=== PATIENT | female | born 1995 | race Caucasian/White ===

== ENCOUNTER 2020-10-31 03:44 | Inpatient (IN) | payer MEDICAID ==
[2020-10-31] MEDS ORDERED: Ondansetron 4 MG/2 ML SDV IVPUSH PRN (19:25)
[2020-10-31] MEDS ORDERED: Calcium Carbonate 500 MG Tab.Chew PO PRN (19:25)
[2020-10-31] MEDS ORDERED: Sodium Chloride 0.9% 10 ML Syringe FLUSH PRN (19:25)
[2020-10-31] MEDS ORDERED: Nalbuphine 10 MG/1 ML Vial IVPUSH PRN (19:25)
[2020-10-31] MEDS ORDERED: Acetaminophen 325 MG Tab PO PRN (19:25)
[2020-10-31] MEDS ORDERED: Misoprostol 25 MCG (1/4 of 100 MCG) Tab VAG ONE (19:27)
[2020-10-31] MEDS ORDERED: Oxytocin/Lactated Ringers 10 UNIT/1,000 ML BAG IV SCH (19:30)
--- NOTE | 2020-10-31 20:47 | PCM.LDHP ---
L&D History of Present Illness - General Date of Service: 10/31/20 Admit Problem/Dx: Patient Status Order with Admit Dx/Problem 10/31/20 19:25 Patient Status [ADT] Routine Admission Diagnosis/Problem Admission Diagnosis/Problem Source of Information: Patient History Limitations: Reports: No Limitations - History of Present Illness Introduction:: Patti Werner is a 25-year-old G1, P0 female at 39 weeks 3 days (MABEL 11/04/2020) by a 7-week ultrasound who presents for elective induction of labor. She denies any significant cramping or contractions. Denies any leaking of fluid or vaginal bleeding. Reports that she has been feeling good movement. Reports that she was seen over the weekend on 10/29/2020, for regular contractions without any cervical change. She was discharged home not in labor. Associated Symptoms: Denies: vaginal bleeding, vaginal discharge, vaginal fluid Present Illness Comments:: Patti Werner is a 25-year-old female at 39 weeks 3 days (MABEL 11/04/2020) by a 7-week ultrasound who presents for elective induction of labor. She has had routine care with myself, Dr. Mckinney, starting at 7 weeks gestational age. She has not had any significant problems during the . She declined the flu and Tdap vaccine during . She was noted to have infant that was measuring large for gestational age and had ultrasounds throughout the to monitor growth. Her most recent ultrasound was done on 10/16/2020 and the infant was weighing 3743 g (8 pounds 4 ounces) (95th percentile) at that time. She was measuring approximately 1.5 weeks ahead at that time. Patient has been on aspirin 81 mg daily for preeclampsia prophylaxis due to 3 moderate risk factors including nulliparity, obesity and family history with preeclampsia with her mother having preeclampsia during one of her pregnancies. This is complicated by: * Large for dates with measuring 2 to 3 cm ahead. She most recently had an ultrasound performed on 10/16/2020 that showed that the infant was measuring at the 95th percentile at 3743 g (8 pounds 4 ounces) at that time. * Obesity with patient having BMI of 40.8. She did have normal weight gain during the FINANCIAL COST ANALYST history G1: Current labs Blood type: A+ Antibody screen: Negative First trimester hematocrit/hemoglobin: 38.2%/12.9 on 02/28/2020 Platelets: 366 on 02/28/2020 Urine culture: Mixed nida suggestive of contamination Rubella status: Immune Hepatitis B surface antigen: Negative RPR: Negative HIV: Negative Gonorrhea: Negative Chlamydia: Negative Anatomy ultrasound: Normal anatomy, no abnormalities, fundal placenta, no previa, 95th percentile (3743 g) (8 pounds 4 ounces) on 10/16/2020 One hour glucose tolerance test: 102 Second trimester hematocrit/hemoglobin: 33.8%/11.1 on 08/03/2020 Platelets: 233 on 08/03/2020 GBS status: Negative - Related Data Allergies/Adverse Reactions: Allergies Allergy/AdvReac Type Severity Reaction Status Date / Time No Known Allergies Allergy Verified 10/31/20 19:24 Home Medications: Home Meds Aspirin 81 mg PO DAILY 10/03/20 [History] #103/Iron Fumarate/Fa [ ] 1 each PO DAILY 10/03/20 [History] Past Medical History - Past Health History Medical/Surgical History: Denies Medical/Surgical History - Past Surgical History HEENT Surgical History: Reports: Other (See Below) ([place] tooth extraction) Social & Family History - Tobacco Use Tobacco Use Status *Q: Never Tobacco User Tobacco Use Within Last Twelve Months: No - Tobacco Core Measures Tobacco Use/Smoking Within Last 30 Days: No Smokeless Tobacco Use in Last 30 Days: No - Alcohol Use Alcohol Use History: No - Recreational Drug Use Recreational Drug Use: No Drug Use in Last 12 Months: No - Living Situation & Occupation Living situation: Reports: Single, with Significant Other Occupation: Employed H&P Review of Systems - Review of Systems: Review Of Systems: See Below General: Denies: Fever, Chills, Malaise, Weakness, Fatigue HEENT: Denies: Headaches, Rhinitis, Post Nasal Drip, Sinus Congestion, Sore Throat, Visual Changes Pulmonary: Denies: Shortness of Breath, Wheezing, Pleuritic Chest Pain, Cough Cardiovascular: Denies: Chest Pain, Palpitations, Dyspnea on Exertion, Orthopnea Gastrointestinal: Denies: Abdominal Pain, Constipation, Diarrhea, Nausea, Vomiting Genitourinary: Denies: Dysuria, Frequency, Burning, Pain, Urgency Musculoskeletal: Reports: Back Pain (and hip pain of ) Skin: Denies: Rash, Lesions Psychiatric: Denies: Depression, Anxiety Neurological: Denies: Dizziness, Numbness L&D Exam - Exam Exam: See Below - Vital Signs Weight: 121.608 kg - OB Specific Contraction Duration (sec): 45-75 Contraction Frequency (min): 4-7 Contraction Intensity: Mild to Moderate Movement: Active Heart Tones: Present Heart Tones per Min: 140 (+15 x 15 accelerations, no decelerations) Heart Rate (FHR) Variability: Moderate (6-25 bmp) Presentation: Vertex Estimated Weight: 8.5 - 9 lbs by Jorge's - Exam General: Alert, Oriented HEENT: Conjunctiva Clear, EOMI Neck: Supple, Trachea Midline Lungs: Clear to Auscultation, Normal Respiratory Effort Cardiovascular: Regular Rate, Regular Rhythm GI/Abdominal Exam: Soft, Non-Tender, No Distention, Other (Gravid). No: Guarding, Rigid, Rebound Genitourinary: Normal external exam Extremities: Normal Inspection, No Pedal Edema Skin: Warm, Dry, Intact Psychiatric: Alert, Normal Affect, Normal Mood - Patient Data Lab Results Last 24 hrs: Laboratory Results - last 24 hr 10/31/20 Range/Units 19:40 WBC 8.74 (3.98-10.04) K/mm3 RBC 3.76 L (3.98-5.22) M/mm3 Hgb 10.0 L (11.2-15.7) gm/dl Hct 30.9 L (34.1-44.9) % MCV 82.2 (79.4-94.8) fl MCH 26.6 (25.6-32.2) pg MCHC 32.4 (32.2-35.5) g/dl RDW Std Deviation 39.3 (36.4-46.3) fL Plt Count 223 (182-369) K/mm3 MPV 11.8 (9.4-12.3) fl Neut % (Auto) 76.6 H (34.0-71.1) % Lymph % (Auto) 16.1 L (19.3-51.7) % [place] % (Auto) 6.5 (4.7-12.5) % Eos % (Auto) 0.6 L (0.7-5.8) Baso % (Auto) 0.1 (0.1-1.2) % Neut # (Auto) 6.69 H (1.56-6.13) K/mm3 Lymph # (Auto) 1.41 (1.18-3.74) K/mm3 [place] # (Auto) 0.57 H (0.24-0.36) K/mm3 Eos # (Auto) 0.05 (0.04-0.36) K/mm3 Baso # (Auto) 0.01 (0.01-0.08) K/mm3 Result Diagrams: 10/31/20 19:40 - Problem List (1) 39 weeks gestation of SNOMED Code(s): 86121561 ICD Code: Z3A.39 - 39 WEEKS GESTATION OF Status: Acute Current Visit: Yes (2) Obesity affecting SNOMED Code(s): 442345534471, 851371012428 ICD Code: O99.210 - OBESITY COMPLICATING , UNSPECIFIED TRIMESTER Status: Acute Current Visit: Yes Problem List Initiated/Reviewed/Updated: Yes Orders Last 24hrs: Active Orders 24 hr Category Date Time Status Patient Status [ADT] Routine ADT 10/31/20 19:25 Active Activity as Tolerated [RC] PFP Care 10/31/20 19:25 Active Communication Order [RC] ASDIRECTED Care 10/31/20 19:25 Active Heart Tones [RC] ASDIRECTED Care 10/31/20 19:25 Active Non Stress Test [RC] PER UNIT ROUTINE Care 10/31/20 19:25 Active Notify Provider [RC] PFP Care 10/31/20 19:25 Active Notify Provider [RC] PRN Care 10/31/20 19:25 Active Peripheral IV Care [RC] . DIRECTED Care 10/31/20 19:25 Active Vital Signs [RC] PER UNIT ROUTINE Care 10/31/20 19:25 Active Regular Diet [DIET] Diet 10/31/20 Breakfast Active CORONAVIRUS COVID-19 NATAN [MOLEC] Stat Lab 10/31/20 19:40 Received RAPID PLASMA REAGIN,RPR [CHEM] Routine Lab 10/31/20 19:40 Received TYPE AND SCREEN [BBK] Stat Lab 10/31/20 19:40 Received Acetaminophen [TylenoL] Med 10/31/20 19:25 Active 650 mg PO Q4H PRN Calcium Carbonate [Tums] Med 10/31/20 19:25 Active 1,000 mg PO Q2H PRN Lactated Ringers [Ringers, Lactated] 1,000 ml Med 10/31/20 19:30 Active IV ASDIRECTED Nalbuphine [Nubain] Med 10/31/20 19:25 Active 10 mg IVPUSH Q2H PRN Ondansetron [Zofran] Med 10/31/20 19:25 Active 4 mg IVPUSH Q4H PRN Oxytocin/Lactated Ringers [Pitocin in LR 10 Units/1,000 Med 10/31/20 19:30 Active ML] 10 unit in 1,000 ml IV .CONTINUOUS Oxytocin/Lactated Ringers [Pitocin in LR 10 Units/1,000 Med 10/31/20 19:30 Active ML] 10 unit in 1,000 ml IV TITRATE Sodium Chloride 0.9% [Saline Flush] Med 10/31/20 19:25 Active 10 ml FLUSH ASDIRECTED PRN Electronic Heart Tones Ext w TOCO [WOMSER] Ot 10/31/20 19:25 Ordered Routine Electronic Heart Tones Internal [WOMSER] Per Unit Ot 10/31/20 19:25 Ordered Routine Peripheral IV Insertion Adult [OM.PC] Routine Oth 10/31/20 19:25 Ordered Resuscitation Status Routine Resus Stat 10/31/20 19:25 Ordered Medication Orders Acetaminophen (Tylenol) 650 mg PO Q4H PRN PRN Reason: Pain (Mild 1-3) and fever Calcium Carbonate/Glycine (Tums) 1,000 mg PO Q2H PRN PRN Reason: Indigestion Oxytocin/Lactated Ringer's (Pitocin In Lr 10 Units/1,000 Ml) 10 unit in 1,000 mls @ 12 mls/hr IV TITRATE NNEKA; Protocol Oxytocin/Lactated Ringer's (Pitocin In Lr 10 Units/1,000 Ml) 10 unit in 1,000 mls @ 500 mls/hr IV .CONTINUOUS NNEKA Lactated Ringer's (Ringers, Lactated) 1,000 mls @ 100 mls/hr IV ASDIRECTED NNEKA Nalbuphine HCl (Nubain) 10 mg IVPUSH Q2H PRN PRN Reason: Pain Ondansetron HCl (Zofran) 4 mg IVPUSH Q4H PRN PRN Reason: Nausea/Vomiting Sodium Chloride (Saline Flush) 10 ml FLUSH ASDIRECTED PRN PRN Reason: Keep Vein Open Assessment/Plan Comment:: Patti Werner is a 25-year-old G1, P0 at 39 weeks 3 days (MABEL 11/04/2020) who presents for elective induction of labor Patient had placement of an 18 [place] transcervical [place] bulb with a speculum and ring forceps with the [place] bulb inflated with 60 mL of sterile saline. Mother and infant tolerated procedure without difficulty. Refer to observation for elective induction of labor Start induction of labor with Cytotec 25 mcg vaginally now and every 4 hours Intermittent monitoring while on Cytotec with monitoring for 30 minutes after placement of Cytotec and may ambulate as tolerated with category [address] IV and have Lactated Ringer's at 125 ml/hr if not tolerating regular diet May have regular diet while on Cytotec induction Activity as tolerated May have epidural as desired Plans to breast-feed after delivery Anticipate vaginal delivery unless otherwise indicated Michael Mckinney MD 9:11 PM 10/31/2020
[2020-11-01] MEDS: Misoprostol 25 MCG (1/4 of 100 MCG) Tab VAG SCH ×2 (00:15→03:38)
[2020-11-01] MEDS: Lactated Ringers 1,000 ML IV SCH ×6 (00:37→18:12)
[2020-11-01] MEDS ORDERED: diphenhydrAMINE 50 MG/ML SDV IVPUSH PRN (01:10)
[2020-11-01] MEDS ORDERED: ePHEDrine 50 MG/ML SDV IVPUSH PRN (01:10)
[2020-11-01] MEDS: fentaNYL 100 MCG/2 ML SDV EPIDUR PRN ×3 (01:18→20:58)
[2020-11-01] MEDS: Bupivacaine/fentaNYL/NS 100 ML Bag EPIDUR PRN ×4 (01:19→21:02)
--- NOTE | 2020-11-01 01:43 | PCM.PREANE ---
Preanesthetic Assessment - Procedure Proposed Procedure: julio - Anesthesia/Transfusion/Family Hx Anesthesia History: Prior Anesthesia Without Reaction Family History of Anesthesia Reaction: No Transfusion History: No Prior Transfusion(s) - Review of Systems General: No Symptoms Pulmonary: No Symptoms Cardiovascular: No Symptoms Gastrointestinal: No Symptoms Neurological: No Symptoms Other: Reports: None - Physical Assessment Vital Signs: Last Vital Signs Temp 96.9 F 10/31/20 19:13 Pulse 82 10/31/20 19:13 Resp 16 10/31/20 19:13 BP 130/86 10/31/20 19:13 Pulse Ox 97 10/31/20 19:13 Height: 5 ft 8 in Weight: 121.608 kg ASA Class: 2 Mental Status: Alert & Oriented x3 Airway Class: Mallampati = 1 Dentition: Reports: Normal Dentition Thyro-Mental Finger Breadths: 3 Mouth Opening Finger Breadths: 3 ROM/Head Extension: Full Lungs: Clear to Auscultation, Normal Respiratory Effort Cardiovascular: Regular Rate, Regular Rhythm - Lab Values: Laboratory Last Values WBC 8.74 K/mm3 (3.98-10.04) 10/31/20 19:40 RBC 3.76 M/mm3 (3.98-5.22) L 10/31/20 19:40 Hgb 10.0 gm/dl (11.2-15.7) L 10/31/20 19:40 Hct 30.9 % (34.1-44.9) L 10/31/20 19:40 MCV 82.2 fl (79.4-94.8) 10/31/20 19:40 MCH 26.6 pg (25.6-32.2) 10/31/20 19:40 MCHC 32.4 g/dl (32.2-35.5) 10/31/20 19:40 RDW Std Deviation 39.3 fL (36.4-46.3) 10/31/20 19:40 Plt Count 223 K/mm3 (182-369) 10/31/20 19:40 MPV 11.8 fl (9.4-12.3) 10/31/20 19:40 Neut % (Auto) 76.6 % (34.0-71.1) H 10/31/20 19:40 Lymph % (Auto) 16.1 % (19.3-51.7) L 10/31/20 19:40 [place] % (Auto) 6.5 % (4.7-12.5) 10/31/20 19:40 Eos % (Auto) 0.6 (0.7-5.8) L 10/31/20 19:40 Baso % (Auto) 0.1 % (0.1-1.2) 10/31/20 19:40 Neut # (Auto) 6.69 K/mm3 (1.56-6.13) H 10/31/20 19:40 Lymph # (Auto) 1.41 K/mm3 (1.18-3.74) 10/31/20 19:40 [place] # (Auto) 0.57 K/mm3 (0.24-0.36) H 10/31/20 19:40 Eos # (Auto) 0.05 K/mm3 (0.04-0.36) 10/31/20 19:40 Baso # (Auto) 0.01 K/mm3 (0.01-0.08) 10/31/20 19:40 RPR Non-reactive (NONREACTIVE) 10/31/20 19:40 SARS-CoV-2 RNA (NATAN) Negative (NEGATIVE) 10/31/20 19:40 Blood Type A POSITIVE 10/31/20 19:40 Gel Antibody Screen Negative 10/31/20 19:40 - Allergies Allergies/Adverse Reactions: Allergies Allergy/AdvReac Type Severity Reaction Status Date / Time No Known Allergies Allergy Verified 10/31/20 19:24 - Blood Blood Available: No - Acknowledgements Anesthesia Type Planned: Epidural Pt an Appropriate Candidate for the Planned Anesthesia: Yes Alternatives and Risks of Anesthesia Discussed w Pt/Guardian: Yes Pt/Guardian Understands and Agrees with Anesthesia Plan: Yes PreAnesthesia Questionnaire - Past Health History Medical/Surgical History: Denies Medical/Surgical History Cardiovascular History: Reports: None Respiratory History: Reports: None Gastrointestinal History: Reports: GERD 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 Para: 0 Endocrine/Metabolic History: Reports: Obesity/BMI 30+ - Past Surgical History HEENT Surgical History: Reports: Other (See Below) ([place] tooth extraction) - SUBSTANCE USE Tobacco Use Status *Q: Never Tobacco User Tobacco Use Within Last Twelve Months: No Second Hand Smoke Exposure: Yes Days Per Week of Alcohol Use: 2 (prior to ) Number of Drinks Per Day: 3 Total Drinks Per Week: 6 Recreational Drug Use History: No - HOME MEDS Home Medications: Home Meds Aspirin 81 mg PO DAILY 10/03/20 [History] #103/Iron Fumarate/Fa [ ] 1 each PO DAILY 10/03/20 [History] - CURRENT (IN HOUSE) MEDS Current Meds: Current Medications Acetaminophen (Tylenol) 650 mg PO Q4H PRN PRN Reason: Pain (Mild 1-3) and fever Calcium Carbonate/Glycine (Tums) 1,000 mg PO Q2H PRN PRN Reason: Indigestion Diphenhydramine HCl (Benadryl) 25 mg IVPUSH Q6H PRN PRN Reason: pruritis Ephedrine Sulfate (Ephedrine Sulfate) 5 mg IVPUSH ASDIRECTED PRN PRN Reason: Hypotension Fentanyl (Sublimaze) 100 mcg EPIDUR Q3H PRN PRN Reason: Pain Last Admin: 11/01/20 01:18 Dose: 100 mcg Documented by: Fentanyl/Bupivacaine HCl (Fentanyl/Bupivacaine/Ns 2 Mcg-0.125% 100 Ml) 100 ml EPIDUR ASDIRECTED PRN PRN Reason: Pain Last Admin: 11/01/20 01:19 Dose: 100 ml Documented by: Oxytocin/Lactated Ringer's (Pitocin In Lr 10 Units/1,000 Ml) 10 unit in 1,000 mls @ 12 mls/hr IV TITRATE NNEKA; Protocol Oxytocin/Lactated Ringer's (Pitocin In Lr 10 Units/1,000 Ml) 10 unit in 1,000 mls @ 500 mls/hr IV .CONTINUOUS NNEKA Lactated Ringer's (Ringers, Lactated) 1,000 mls @ 100 mls/hr IV ASDIRECTED NNEKA Last Admin: 11/01/20 01:13 Dose: 100 mls/hr Documented by: Misoprostol (Cytotec) 25 mcg VAG Q4H NNEKA Stop: 11/01/20 04:02 Last Admin: 11/01/20 00:15 Dose: Not Given Documented by: Nalbuphine HCl (Nubain) 10 mg IVPUSH Q2H PRN PRN Reason: Pain Ondansetron HCl (Zofran) 4 mg IVPUSH Q4H PRN PRN Reason: Nausea/Vomiting Sodium Chloride (Saline Flush) 10 ml FLUSH ASDIRECTED PRN PRN Reason: Keep Vein Open Discontinued Medications Misoprostol (Cytotec) 25 mcg VAG ONETIME ONE Stop: 10/31/20 19:28 Last Admin: 10/31/20 20:04 Dose: 25 mcg Documented by:
[2020-11-01] MEDS: Oxytocin/Lactated Ringers 10 UNIT/1,000 ML BAG IV SCH ×2 (02:01→19:51)
--- NOTE | 2020-11-01 09:13 | PCM.PNLD ---
Labor Progress Note - VS & Meds Vital Signs: Last Vital Signs Temp 36.1 C 10/31/20 19:13 Pulse 82 10/31/20 19:13 Resp 16 10/31/20 19:13 BP 130/86 10/31/20 19:13 Pulse Ox 97 10/31/20 19:13 Active Medications: Current Medications Acetaminophen (Tylenol) 650 mg PO Q4H PRN PRN Reason: Pain (Mild 1-3) and fever Calcium Carbonate/Glycine (Tums) 1,000 mg PO Q2H PRN PRN Reason: Indigestion Diphenhydramine HCl (Benadryl) 25 mg IVPUSH Q6H PRN PRN Reason: pruritis Ephedrine Sulfate (Ephedrine Sulfate) 5 mg IVPUSH ASDIRECTED PRN PRN Reason: Hypotension Fentanyl (Sublimaze) 100 mcg EPIDUR Q3H PRN PRN Reason: Pain Last Admin: 11/01/20 01:18 Dose: 100 mcg Documented by: Fentanyl/Bupivacaine HCl (Fentanyl/Bupivacaine/Ns 2 Mcg-0.125% 100 Ml) 100 ml EPIDUR ASDIRECTED PRN PRN Reason: Pain Last Admin: 11/01/20 08:32 Dose: 100 ml Documented by: Oxytocin/Lactated Ringer's (Pitocin In Lr 10 Units/1,000 Ml) 10 unit in 1,000 mls @ 12 mls/hr IV TITRATE NNEKA; Protocol Last Titration: 11/01/20 08:34 Dose: 7 munits/min, 42 mls/hr Documented by: Oxytocin/Lactated Ringer's (Pitocin In Lr 10 Units/1,000 Ml) 10 unit in 1,000 mls @ 500 mls/hr IV .CONTINUOUS NNEKA Lactated Ringer's (Ringers, Lactated) 1,000 mls @ 100 mls/hr IV ASDIRECTED NNEKA Last Admin: 11/01/20 08:35 Dose: 100 mls/hr Documented by: Nalbuphine HCl (Nubain) 10 mg IVPUSH Q2H PRN PRN Reason: Pain Ondansetron HCl (Zofran) 4 mg IVPUSH Q4H PRN PRN Reason: Nausea/Vomiting Sodium Chloride (Saline Flush) 10 ml FLUSH ASDIRECTED PRN PRN Reason: Keep Vein Open Discontinued Medications Misoprostol (Cytotec) 25 mcg VAG ONETIME ONE Stop: 10/31/20 19:28 Last Admin: 10/31/20 20:04 Dose: 25 mcg Documented by: Misoprostol (Cytotec) 25 mcg VAG Q4H NNEKA Stop: 11/01/20 04:02 Last Admin: 11/01/20 03:38 Dose: Not Given Documented by: - Uterine Contractions Uterine Monitoring Mode: External [place] Contraction Frequency (min): 2-3 Contraction Duration (sec): 60-75 Contraction Intensity: Moderate to Strong Uterine Resting Tone: Soft - Monitoring Heart Rate (FHR) Baseline: 140 Heart Rate (FHR) Per Doppler: 140 Heart Rate (FHR) Variability: Moderate (6-25 bmp) Accelerations: Present, 15x15 Decelerations: Late, Intermittent (<50% x 20 min) Strip Review: Category II - Vaginal Exam Dilation (cm): 5 Effacement (Percent): 60 Station: -3 Cervical Position: Anterior Sterile Vaginal Exam Performed By: Michael Mckinney Vaginal Exam Comment: Attempted artificial rupture membranes with [place] but unable to reach the amniotic sac due to the location of the cervix behind the pubic symphysis. Attempt to stop did after approximately 1 to 2 minutes of attempted rupture of membranes. - Labor Progress (Free Text) Labor Progress: Patti Werner is a 25-year-old G1, P0 at 39 weeks 4 days (MABEL 11/04/2020) undergoing elective induction of labor Her [place] bulb came out spontaneously at around midnight and she was started on Pitocin at around 2 AM * Patient continuing to make progress at this time * Epidural in place with good anesthesia * Patient with several mild range blood pressures overnight suspect most likely due to pain as they occurred prior to her epidural. She has had several additional this morning with epidural in place. We will continue to monitor closely. * Routine vitals * Attempted rupture membranes but unsuccessful due to the and cervix position. * We will plan to reattempt artificial rupture membranes later this morning * Continue Pitocin for induction of labor * Anticipate vaginal delivery unless otherwise indicated Michael Mckinney MD 9:12 AM 11/01/2020
--- NOTE | 2020-11-01 17:09 | PCM.PNLD ---
Labor Progress Note - VS & Meds Vital Signs: Last Vital Signs Temp 36.1 C 10/31/20 19:13 Pulse 82 10/31/20 19:13 Resp 16 10/31/20 19:13 BP 130/86 10/31/20 19:13 Pulse Ox 97 10/31/20 19:13 Active Medications: Current Medications Acetaminophen (Tylenol) 650 mg PO Q4H PRN PRN Reason: Pain (Mild 1-3) and fever Calcium Carbonate/Glycine (Tums) 1,000 mg PO Q2H PRN PRN Reason: Indigestion Diphenhydramine HCl (Benadryl) 25 mg IVPUSH Q6H PRN PRN Reason: pruritis Ephedrine Sulfate (Ephedrine Sulfate) 5 mg IVPUSH ASDIRECTED PRN PRN Reason: Hypotension Fentanyl (Sublimaze) 100 mcg EPIDUR Q3H PRN PRN Reason: Pain Last Admin: 11/01/20 15:55 Dose: 100 mcg Documented by: Fentanyl/Bupivacaine HCl (Fentanyl/Bupivacaine/Ns 2 Mcg-0.125% 100 Ml) 100 ml EPIDUR ASDIRECTED PRN PRN Reason: Pain Last Admin: 11/01/20 15:03 Dose: 100 ml Documented by: Oxytocin/Lactated Ringer's (Pitocin In Lr 10 Units/1,000 Ml) 10 unit in 1,000 mls @ 12 mls/hr IV TITRATE NNEKA; Protocol Last Titration: 11/01/20 16:35 Dose: 14 munits/min, 84 mls/hr Documented by: Oxytocin/Lactated Ringer's (Pitocin In Lr 10 Units/1,000 Ml) 10 unit in 1,000 mls @ 500 mls/hr IV .CONTINUOUS NNEKA Lactated Ringer's (Ringers, Lactated) 1,000 mls @ 100 mls/hr IV ASDIRECTED NNEKA Last Admin: 11/01/20 08:35 Dose: 100 mls/hr Documented by: Nalbuphine HCl (Nubain) 10 mg IVPUSH Q2H PRN PRN Reason: Pain Ondansetron HCl (Zofran) 4 mg IVPUSH Q4H PRN PRN Reason: Nausea/Vomiting Sodium Chloride (Saline Flush) 10 ml FLUSH ASDIRECTED PRN PRN Reason: Keep Vein Open Discontinued Medications Misoprostol (Cytotec) 25 mcg VAG ONETIME ONE Stop: 10/31/20 19:28 Last Admin: 10/31/20 20:04 Dose: 25 mcg Documented by: Misoprostol (Cytotec) 25 mcg VAG Q4H NNEKA Stop: 11/01/20 04:02 Last Admin: 11/01/20 03:38 Dose: Not Given Documented by: - Uterine Contractions Uterine Monitoring Mode: External [place] Contraction Frequency (min): 2-3 Contraction Duration (sec): 60-75 Contraction Intensity: Strong Uterine Resting Tone: Soft - Monitoring Heart Rate (FHR) Baseline: 150 Heart Rate (FHR) Per Doppler: 150 Heart Rate (FHR) Variability: Moderate (6-25 bmp) Accelerations: Present, 15x15 Decelerations: Late, Intermittent (<50% x 20 min) Strip Review: Category I - Vaginal Exam Dilation (cm): 7-8 Effacement (Percent): 100 Station: -2 Cervical Position: Anterior Sterile Vaginal Exam Performed By: Michael Mckinney - Labor Progress (Free Text) Labor Progress: Patti Werner is a 25-year-old G1, P0 at 39 weeks 4 days (MABEL 11/04/2020) undergoing elective induction of labor * Patient with cervical change to 7 to 8 cm with descent of the head down to -2 station. Patient had made slow progress throughout the day with almost no descent prior to this exam * Epidural in place and we required redose of medication and now has good anesthesia * Patient with ongoing mild range blood pressures out the day. Lab work was checked and there was no evidence of preeclampsia. Urine protein/creatinine ratio was normal at 0.114 which is normal. Patient diagnosed with gestational hypertension at this time. No additional treatment or monitoring needed at this time. * Routine vitals and notify of severe range blood pressures if present * Patient with spontaneous rupture membranes with moderate stained meconium fluid at around 12:30 PM * Continue Pitocin for induction of labor * Anticipate vaginal delivery unless otherwise indicated Michael Mckinney MD 5:13 PM 11/01/2020
[2020-11-02] MEDS ORDERED: Lidocaine 1.5% with EPINEPHrine 1:200,000 5 ML Amp ONE
[2020-11-02] MEDS ORDERED: Bupivacaine 0.25% 10 ML SDV ONE
[2020-11-02] MEDS ORDERED: Ampicillin 2 GM AdvVial IV ONE (02:12)
[2020-11-02] MEDS ORDERED: Gentamicin 40 MG/ML 2 ML Vial IV SCH (02:15)
[2020-11-02] MEDS ORDERED: Ampicillin 2 GM in Sodium Chloride 0.9% 100 ML IV SCH (02:15)
[2020-11-02] MEDS ORDERED: Citric Acid/Sodium Citrate Solution 30 ML Cup ONE (02:48)
[2020-11-02] MEDS ORDERED: Metoclopramide 10 MG/2 ML SDV ONE (02:48)
[2020-11-02] MEDS ORDERED: Metoclopramide 10 MG/2 ML SDV IVPUSH ONE (02:53)
[2020-11-02] MEDS ORDERED: Clindamycin Phosphate in D5W 900 MG in Premix Bag 1 BAG IV ONE ×2 (02:53)
[2020-11-02] MEDS ORDERED: Sodium Chloride 0.9% 10 ML Syringe FLUSH PRN (02:53)
[2020-11-02] MEDS ORDERED: Citric Acid/Sodium Citrate Solution 30 ML Cup PO ONE (02:53)
[2020-11-02] MEDS ORDERED: Lactated Ringers 1,000 ML IV SCH (03:00)
[2020-11-02] MEDS ORDERED: Oxytocin/Lactated Ringers 10 UNIT/1,000 ML BAG IV SCH ×2 (03:00→06:48)
--- NOTE | 2020-11-02 03:04 | PCM.PNLD ---
Labor Progress Note - VS & Meds Vital Signs: Last Vital Signs Temp 36.1 C 10/31/20 19:13 Pulse 82 10/31/20 19:13 Resp 16 10/31/20 19:13 BP 130/86 10/31/20 19:13 Pulse Ox 97 10/31/20 19:13 Active Medications: Current Medications Acetaminophen (Tylenol) 650 mg PO Q4H PRN PRN Reason: Pain (Mild 1-3) and fever Last Admin: 11/02/20 01:04 Dose: 650 mg Documented by: Calcium Carbonate/Glycine (Tums) 1,000 mg PO Q2H PRN PRN Reason: Indigestion Diphenhydramine HCl (Benadryl) 25 mg IVPUSH Q6H PRN PRN Reason: pruritis Ephedrine Sulfate (Ephedrine Sulfate) 5 mg IVPUSH ASDIRECTED PRN PRN Reason: Hypotension Fentanyl (Sublimaze) 100 mcg EPIDUR Q3H PRN PRN Reason: Pain Last Admin: 11/01/20 20:58 Dose: 100 mcg Documented by: Fentanyl/Bupivacaine HCl (Fentanyl/Bupivacaine/Ns 2 Mcg-0.125% 100 Ml) 100 ml EPIDUR ASDIRECTED PRN PRN Reason: Pain Last Admin: 11/01/20 21:02 Dose: 100 ml Documented by: Gentamicin Sulfate (Gentamicin) 0 mg IV .Pharmacy to Dose [facility] Oxytocin/Lactated Ringer's (Pitocin In Lr 10 Units/1,000 Ml) 10 unit in 1,000 mls @ 12 mls/hr IV TITRATE NNEKA; Protocol Last Titration: 11/01/20 23:26 Dose: 16 munits/min, 96 mls/hr Documented by: Oxytocin/Lactated Ringer's (Pitocin In Lr 10 Units/1,000 Ml) 10 unit in 1,000 mls @ 500 mls/hr IV .CONTINUOUS NNEKA Lactated Ringer's (Ringers, Lactated) 1,000 mls @ 100 mls/hr IV ASDIRECTED NNEKA Last Admin: 11/01/20 18:12 Dose: 100 mls/hr Documented by: Ampicillin Sodium 2 gm/ Sodium (Chloride) 100 mls @ 200 mls/hr IV NOW NNEKA Gentamicin Sulfate 200 mg/ (Sodium Chloride) 105 mls @ 105 mls/hr IV Q8H NNEKA Last Admin: 11/02/20 02:30 Dose: 105 mls/hr Documented by: Nalbuphine HCl (Nubain) 10 mg IVPUSH Q2H PRN PRN Reason: Pain Ondansetron HCl (Zofran) 4 mg IVPUSH Q4H PRN PRN Reason: Nausea/Vomiting Last Admin: 11/01/20 19:31 Dose: 4 mg Documented by: Sodium Chloride (Saline Flush) 10 ml FLUSH ASDIRECTED PRN PRN Reason: Keep Vein Open Discontinued Medications Ampicillin Sodium (Ampicillin) Confirm Administered Dose 2 gm IV .STK-MED ONE Stop: 11/02/20 02:13 Last Admin: 11/02/20 02:17 Dose: 2 gm Documented by: Citric Acid/Sodium Citrate (Bicitra Solution) Confirm Administered Dose 30 ml .ROUTE .STK-MED ONE Stop: 11/02/20 02:49 Metoclopramide HCl (Reglan) Confirm Administered Dose 10 mg .ROUTE .STK-MED ONE Stop: 11/02/20 02:49 Misoprostol (Cytotec) 25 mcg VAG ONETIME ONE Stop: 10/31/20 19:28 Last Admin: 10/31/20 20:04 Dose: 25 mcg Documented by: Misoprostol (Cytotec) 25 mcg VAG Q4H NNEKA Stop: 11/01/20 04:02 Last Admin: 11/01/20 03:38 Dose: Not Given Documented by: - Uterine Contractions Uterine Monitoring Mode: External Tenino Contraction Frequency (min): 1-3 Contraction Duration (sec): 60-75 Contraction Intensity: Strong Uterine Resting Tone: Soft - Monitoring Heart Rate (FHR) Baseline: 165 Heart Rate (FHR) Per Doppler: 165 Heart Rate (FHR) Variability: Moderate (6-25 bmp) Accelerations: Present, 15x15 Decelerations: None Strip Review: Category II - Vaginal Exam Dilation (cm): 10 Effacement (Percent): 100 Station: 0 Cervical Position: Anterior Sterile Vaginal Exam Performed By: Michael Mckinney - Labor Progress (Free Text) Labor Progress: Patti Werner is a 25-year-old G1, P0 at 39 weeks 5 days who is undergoing an elective induction of labor Patient got to complete and started pushing at around 1:20 AM. During pushing she made some progress but had minimal descent of the head. After pushing for approximately 1.5 hours patient reported that she was becoming exhausted and was counseled on her options including continued pushing, vacuum extractor delivery or primary section. Patient considered her options and desired to proceed with primary section as she felt that she would not be able to push appropriately to deliver with a vacuum extractor delivery. * Admit to inpatient after section * Continue Lactated Ringer's at 125 ml/hr * SCDs for DVT prophylaxis * Nothing by mouth * Activity as tolerated * Plan for epidural for anesthesia * Plans to breast-feed after delivery * Plan for clindamycin 900 mg IV for antibiotic prophylaxis prior to surgery, patient has already received ampicillin 2 g IV and gentamicin 5 mg/kg due to chorioamnionitis that was diagnosed during pushing * Stop Pitocin at this time * Consents were signed with the patient prior to going for procedure Michael Mckinney M.D. 3:03 AM 11/02/2020
[2020-11-02] MEDS ORDERED: Bupivacaine 0.5% 30 ML SDV ONE (03:05)
[2020-11-02] MEDS ORDERED: Ketorolac 30 MG/ML SDV ONE (03:08)
[2020-11-02] MEDS ORDERED: fentaNYL 100 MCG/2 ML SDV ONE (03:08)
[2020-11-02] MEDS ORDERED: Morphine PF 10 MG/10 ML SDV ONE (03:08)
[2020-11-02] MEDS ORDERED: Lactated Ringers 2,000 ML ONE (03:08)
[2020-11-02] MEDS ORDERED: ceFAZolin 1 GM Vial ONE (03:08)
[2020-11-02] MEDS ORDERED: Ondansetron 4 MG/2 ML SDV ONE ×2 (03:08→03:52)
[2020-11-02] MEDS ORDERED: Oxytocin 10 Units/1 ML SDV ONE (03:08)
[2020-11-02] MEDS ORDERED: Lidocaine 2% with EPINEPHrine 1:200,000 20 ML SDV ONE (03:08)
[2020-11-02] MEDS ORDERED: fentaNYL 100 MCG/2 ML SDV IVPUSH PRN (03:16)
[2020-11-02] MEDS ORDERED: diphenhydrAMINE 50 MG/ML SDV IVPUSH PRN ×2 (03:16→06:48)
[2020-11-02] MEDS ORDERED: Ondansetron 4 MG/2 ML SDV IVPUSH PRN (03:16)
[2020-11-02] MEDS ORDERED: ePHEDrine 50 MG/ML SDV IVPUSH PRN ×2 (03:16→06:48)
[2020-11-02] MEDS ORDERED: HYDROmorphone 0.5 MG/0.5 ML Syringe IVPUSH PRN (03:17)
[2020-11-02] MEDS ORDERED: Meperidine 50 MG/ML Vial ONE (03:56)
--- NOTE | 2020-11-02 04:45 | PCM.POSTAN ---
POST ANESTHESIA ASSESSMENT - MENTAL STATUS Mental Status: Alert - VITAL SIGNS Vital Signs: Last Vital Signs Temp 98.3 10/31/20437 Pulse 111 10/31/20437 Resp 21 10/31/20437 BP 92/48 10/31/20437 Pulse Ox 96% 10/31/20437 - RESPIRATORY Respiratory Status: Respiratory Rate WNL, Airway Patent, O2 Saturation Stable - CARDIOVASCULAR CV Status: Pulse Rate WNL, Blood Pressure Stable - GASTROINTESTINAL GI Status: No Symptoms - POST OP HYDRATION Hydration Status: Adequate & Stable
--- NOTE | 2020-11-02 05:10 | PCM.OPNOTE ---
- General Post-Op/Procedure Note Date of Surgery/Procedure: 11/02/20 Operative Procedure(s): Primary low transverse section with double layer closure Findings: Live male infant delivered in vertex presentation on 11/02/2020 at 03:44. A Kiwi mushroom vacuum extractor was used to bring the head closer to the fascial incision and the infant was unable to be delivered without use of the vacuum extractor. There were 2 pop offs of the vacuum extractor. weight was 3840 g (8 pounds 7.5 ounces). Apgars were 7 and 8. Grossly normal- appearing uterus, bilateral fallopian tubes and ovaries. Pre Op Diagnosis: 39 weeks gestational age, chorioamnionitis, gestational hypertension, arrest of descent and maternal exhaustion Post-Op Diagnosis: Same Anesthesia Technique: Epidural Primary Surgeon: Michael Mckinney Anesthesia Provider: Annetta Rizvi Cork Compounder: Balbina Moser Reason Cork Compounder Was Necessary: Patient safety and reduction of morbidity and mortality Role of Cork Compounder: Retraction for visualization Pathology: None Fluid Replacement, Intraop: 1,500 Output, Urine Amount: 100 EBL in mLs: 900 Complications: None Condition: Good Free Text/Narrative:: Intake & Output 11/01/20 11/01/20 11/02/20 14:59 22:59 06:59 Intake Total 120 Output Total 200 100 Balance 120 -200 -100 Length of procedure: 62 minutes Procedure in Detail: Patient had progressed to complete and pushing. During pushing she developed a fever of 100.8 F and also had tachycardia. She was diagnosed with chorioamnionitis and was treated with ampicillin 2 g IV and gentamicin 5 mg/kg. She continued to push for approximately 1.5 hours at which time she had minimal descent of the and was becoming tired with pushing. The risks, benefits and complications were discussed with the patient including continued pushing for attempted vaginal delivery, vacuum assistance with vaginal delivery or proceeding to section. She desired to proceed with section as she felt she would not be able to assist with pushing for delivery of the infant vaginally. The patient desired to proceed with section and appropriate consents were signed. The patient was taken to operating room #1. A Time Out was held and the patient was identified using 2 identifiers and the procedure was confirmed. The patient was given additional dosing through her epidural for anesthesia and was placed in dorsal supine position with leftward tilt. She was given Ancef 3 g and clindamycin 900 mg IV for antibiotic prophylaxis. A Redmond catheter was in place that had been inserted in the labor and delivery room prior to transfer to the operating room. The patient was prepped and draped in the usual sterile manner. The abdominal skin was tested and the epidural anesthesia was found to be adequate. The skin was injected with 0.5% marcaine for local anesthesia. A Pfannenstiel skin incision was made and carried down through the subcutaneous tissue to the fascia with the scapel. The fascia was nicked in the midline using a scalpel and the fascial incision was extended transversely with Myers scissors. The superior aspect of the fascia was grasped with Abimael clamps and tented upwards. The fascia was from the underlying rectus muscle bluntly and sharply with Myers scissors. Attention was then turned to the inferior aspect of the fascia and was grasped using Abimael clamps and tented upwards. The underlying rectus muscle was dissected off bluntly and sharply wit h Myers scissors. The peritoneum was identified and entered bluntly. The bladder blade was inserted and the lower uterine segment was identified. A low transverse uterine incision was made sharply with a scalpel and extended laterally bluntly. The 's head was brought to the uterine incision, the bladder blade was removed and the was attempted to be delivered. The was unable to be delivered initially with abdominal pushing. A Kiwi mushroom vacuum extractor was applied to the head and vacuum was applied to 550 mmHg. The head was then attempted to be delivered and was unsuccessful. There were 2 pop offs. The vacuum was applied for a total of approximately 45 seconds. After the second pop-off the head was attempted to be delivered again and the infant was able to be delivered without difficulty at this time in vertex presentation. On 11/02/2020 a live male infant was delivered in vertex position at 03:44, wt of 3840 grams, 8 pounds and 7.5 ou nces. APGARS were 7 & 8. The nose and mouth were suctioned with bulb suction, the cord was doubly clamped and cut and was transferred to the awaiting pediatric nurse. The placenta was removed intact and appeared normal with a three vessel cord. The uterus was exteriorized and the uterine cavity was cleaned using lap sponges. The hysterotomy was closed with a running locked suture of 0-Vicryl. A second suture of 0-Vicryl was used to imbricate the hysterotomy. The hysterotomy was noted to have a small amount of bleeding near the midline that was repaired with 2 [id number] sutures using 0 Vicryl. The uterine incision was hemostatic at this time. The uterus, tubes and ovaries appeared overall normal. The uterus was then returned into the abdominal cavity. The hysterotomy was noted to remain hemostatic inside the abdominal cavity. The fascia was noted to be hemostatic and the fascia was then reapproximated with running sutures of 0-Vicryl. The subcutaneous fat was reapproximated using 0 Vicryl. The skin was reapproximated using 4-0 Monocryl and Steri-strips were applied over the incision. Instrument, sponge, and needle counts were correct prior to the abdominal closure and at the conclusion of the case. Michael Mckinney MD 5:07 AM 11/02/2020
[2020-11-02] MEDS ORDERED: Naloxone 0.4 MG/ML SDV IVPUSH PRN (06:48)
[2020-11-02] MEDS ORDERED: Acetaminophen/oxyCODONE 325-5 MG Tab PO PRN ×3 (06:48→14:08)
[2020-11-02] MEDS ORDERED: Dextrose 5%-Lactated Ringers 1,000 ML IV SCH (06:48)
[2020-11-02] MEDS ORDERED: Magnesium Hydroxide 400 MG/5 ML Susp 30 ML Cup PO PRN (06:48)
[2020-11-02] MEDS: Ferrous Sulfate 324 MG Tab.EC PO SCH ×2 (08:08→16:36)
[2020-11-02] MEDS ORDERED: Ampicillin 2 GM in Sodium Chloride 0.9% 100 ML IV ONE (10:00)
[2020-11-02] MEDS: Prenatal Multivitamin with Calcium/Folic Acid/Iron Tab PO SCH (10:17)
[2020-11-02] MEDS: Ketorolac 30 MG/ML SDV IVPUSH SCH ×3 (10:17→23:25)
[2020-11-02] MEDS: Docusate Sodium 100 MG Cap PO SCH ×2 (10:17→19:50)
[2020-11-02] MEDS: Acetaminophen/oxyCODONE 325-5 MG Tab PO PRN (14:21)
--- NOTE | 2020-11-02 14:32 | PCM48HPAN ---
Post Anesthesia Note - EVALUATION WITHIN 48HRS OF ANESTHETIC Vital Signs in Normal Range: Yes Patient Participated in Evaluation: Yes Respiratory Function Stable: Yes Airway Patent: Yes Cardiovascular Function Stable: Yes Hydration Status Stable: Yes Pain Control Satisfactory: Yes Nausea and Vomiting Control Satisfactory: Yes Mental Status Recovered: Yes Vital Signs: Last Vital Signs Temp 36.3 C 11/02/20 07:00 Pulse 98 11/02/20 07:00 Resp 16 11/02/20 07:00 BP 133/88 11/02/20 07:00 Pulse Ox 98 11/02/20 07:00
[2020-11-03] MEDS: Acetaminophen/oxyCODONE 325-5 MG Tab PO PRN ×2 (03:05→11:38)
[2020-11-03] MEDS: Ferrous Sulfate 324 MG Tab.EC PO SCH ×2 (07:27→18:29)
[2020-11-03] MEDS: Ibuprofen 600 MG Tab PO PRN ×2 (07:27→18:32)
[2020-11-03] MEDS: Prenatal Multivitamin with Calcium/Folic Acid/Iron Tab PO SCH ×2 (07:27→11:03)
[2020-11-03] MEDS: Docusate Sodium 100 MG Cap PO SCH ×3 (07:27→20:30)
--- NOTE | 2020-11-03 08:47 | PCM.SN.2 ---
- Free Text/Narrative Note: Post Operative Progress Note POD #1 Subjective: Doing well overall. Ambulating minimally and with some difficulty. Lochia minimal. Redmond catheter removed this morning and has not urinated at this time. Passing flatus. Tolerating regular diet without nausea or vomiting. Pain controlled with oral medications. was transferred to [facility] for further NICU care. is bottlefeeding in the NICU in [facility]. Objective: Vitals: Vital Signs - 24 hr 11/02/20 11/02/20 11/02/20 11:00 12:00 13:00 Temperature Pulse, Peripheral Respiratory 16 16 16 Rate Blood Pressure O2 Sat by Pulse 98 98 99 Oximetry 11/02/20 11/02/20 11/02/20 13:26 14:00 15:00 Temperature 36.8 C Pulse, 78 Peripheral Respiratory 16 16 15 Rate Blood Pressure 140/67 O2 Sat by Pulse 99 98 99 Oximetry 11/02/20 11/02/20 11/02/20 16:00 17:00 18:00 Temperature Pulse, Peripheral Respiratory 15 15 15 Rate Blood Pressure O2 Sat by Pulse 99 99 99 Oximetry 11/02/20 11/03/20 11/03/20 19:47 03:07 07:24 Temperature 36.6 C 36.2 C 36.0 C L Pulse, 94 103 H 101 H Peripheral Respiratory 16 14 16 Rate Blood Pressure 123/55 L 126/54 L 118/66 O2 Sat by Pulse 96 96 98 Oximetry Physical Exam General: Alert and oriented, no acute distress Lungs: Clear to auscultation bilaterally Heart: Regular rate and rhythm Abdomen: Soft, minimal appropriate tenderness, non-distended, fundus midline, nontender and at the umbilicus Incision: Clean, dry and intact, no erythema, bleeding or drainage with Steri- Strips in place Extremities: Trace edema in bilateral lower extremities, no calf tenderness bilaterally Labs: Laboratory Results - last 24 hr 11/02/20 11/03/20 Range/Units 12:40 05:50 WBC 16.80 H 13.72 H (3.98-10.04) K/mm3 RBC 3.15 L 3.05 L (3.98-5.22) M/mm3 Hgb 8.3 L 8.0 L (11.2-15.7) gm/dl Hct 26.4 L 25.5 L (34.1-44.9) % MCV 83.8 83.6 (79.4-94.8) fl MCH 26.3 26.2 (25.6-32.2) pg MCHC 31.4 L 31.4 L (32.2-35.5) g/dl RDW Std Deviation 39.9 40.7 (36.4-46.3) fL Plt Count 194 202 (182-369) K/mm3 MPV 11.6 12.5 H (9.4-12.3) fl Neut % (Auto) 91.4 H 81.0 H (34.0-71.1) % Lymph % (Auto) 4.3 L 11.3 L (19.3-51.7) % Butler % (Auto) 4.0 L 6.3 (4.7-12.5) % Eos % (Auto) 0.1 L 1.1 (0.7-5.8) Baso % (Auto) 0.1 0.1 (0.1-1.2) % Neut # (Auto) 15.36 H 11.11 H (1.56-6.13) K/mm3 Lymph # (Auto) 0.73 L 1.55 (1.18-3.74) K/mm3 Butler # (Auto) 0.67 H 0.87 H (0.24-0.36) K/mm3 Eos # (Auto) 0.01 L 0.15 (0.04-0.36) K/mm3 Baso # (Auto) 0.01 0.01 (0.01-0.08) K/mm3 Manual Slide Review Abnormal smear ASSESSMENT: 25-year-old female -0-0-1 s/p vacuum-assisted primary low transverse section POD #1 for arrest of descent and maternal exhaustion, complicated by chorioamnionitis that developed just prior to starting to push and gestational hypertension during labor PLAN: Doing well Infant was transferred to the NICU in [facility] for further care. is bottlefeeding. Incision healing well. Continue to keep clean and dry. Lochia minimal. Continue to monitor for appropriate lochia. Continue routine post-operative care Normal range blood pressures after delivery. No concerns for preeclampsia at this time. Anticipate discharge home tomorrow Michael Mckinney MD 8:46 AM 11/03/2020
[2020-11-03] MEDS: Simethicone 80 MG Tab.Chew PO PRN ×2 (16:00→20:30)
[2020-11-04] MEDS: Ibuprofen 600 MG Tab PO PRN (05:04)
--- NOTE | 2020-11-04 07:54 | PCM.DCSUM1 ---
Discharge Summary - Hospital Course Diagnosis: Stroke: No - Discharge Data Discharge Date: 11/04/20 Discharge Disposition: Home, Self-Care 01 Condition: Good - Referral to Home Health Primary Care Physician: Michael Mckinney MD - Patient Summary/Data Operative Procedure(s) Performed: Primary low transverse section with double layer closure - Patient Instructions Diet: Usual Diet as Tolerated Activity: No Strenuous Activities Driving: May Drive Today Showering/Bathing: May Shower Wound/Incision Care: Keep Operative Site/Wound Site Clean and Dry Notify Provider of: Fever, Increased Pain, Swelling and Redness, Drainage, Nausea and/or Vomiting - Discharge Plan *PRESCRIPTION DRUG MONITORING PROGRAM REVIEWED*: Yes *COPY OF PRESCRIPTION DRUG MONITORING REPORT IN PATIENT DRAKE: No Prescriptions/Med Rec: Acetaminophen/oxyCODONE [Percocet 325-5 MG] 1 - 2 tab PO Q4H PRN #30 tablet PRN Reason: Pain Home Medications: Home Meds #103/Iron Fumarate/Fa [ ] 1 each PO DAILY 10/03/20 [History] Acetaminophen/oxyCODONE [Percocet 325-5 MG] 1 - 2 tab PO Q4H PRN #30 tablet 11/03/20 [Rx] Docusate Sodium [Colace] 100 mg PO BID cap 11/03/20 [Rx] Ferrous Sulfate 324 mg PO BIDMEALS tab.ec 11/03/20 [Rx] Ibuprofen [Motrin] 600 mg PO Q6H PRN tablet 11/03/20 [Rx] Magnesium Hydroxide [Milk of Magnesia] 30 ml PO BEDTIME PRN cup 11/03/20 [Rx] Referrals: Michael Mckinney MD [Primary Care Provider] - (2 weeks ) - Discharge Summary/Plan Comment DC Time >30 min.: No - General Info Date of Service: 11/04/20 Functional Status: Reports: Pain Controlled - Review of Systems General: Reports: No Symptoms HEENT: Reports: No Symptoms Pulmonary: Reports: No Symptoms Cardiovascular: Reports: No Symptoms Gastrointestinal: Reports: No Symptoms Genitourinary: Reports: No Symptoms Musculoskeletal: Reports: No Symptoms Skin: Reports: No Symptoms Neurological: Reports: No Symptoms Psychiatric: Reports: No Symptoms - Patient Data Vitals - Most Recent: Last Vital Signs Temp 36.3 C 11/04/20 02:56 Pulse 94 11/04/20 02:56 Resp 16 11/04/20 02:56 BP 125/72 11/04/20 02:56 Pulse Ox 98 11/04/20 02:56 Weight - Most Recent: 121.608 kg I&O - Last 24 hours: Intake & Output 11/03/20 11/04/20 11/04/20 22:59 06:59 14:59 Output Total 1999 Balance -1999 Med Orders - Current: Current Medications Diphenhydramine HCl (Benadryl) 25 mg IVPUSH Q6H PRN PRN Reason: Itching or Nausea Last Admin: 11/02/20 09:12 Dose: 25 mg Documented by: Docusate Sodium (Colace) 100 mg PO BID [facility] Last Admin: 11/03/20 20:30 Dose: 100 mg Documented by: Ephedrine Sulfate (Ephedrine Sulfate) 5 mg IVPUSH SEECOMMENT PRN PRN Reason: Other Ferrous Sulfate (Ferrous Sulfate) 324 mg PO BIDMEALS [facility] Last Admin: 11/03/20 18:29 Dose: 324 mg Documented by: Oxytocin/Lactated Ringer's (Pitocin In Lr 10 Units/1,000 Ml) 10 unit in 1,000 mls @ 100 mls/hr IV .CONTINUOUS [facility]; Protocol Ibuprofen (Motrin) 600 mg PO Q6H PRN PRN Reason: mild pain or fever Last Admin: 11/04/20 05:04 Dose: 600 mg Documented by: Magnesium Hydroxide (Milk Of Magnesia) 30 ml PO BEDTIME PRN PRN Reason: Constipation Naloxone HCl (Narcan) 0.1 mg IVPUSH SEECOMMENT PRN PRN Reason: Respiratory Depression Oxycodone/Acetaminophen (Percocet 325-5 Mg) 1 tab PO Q4H PRN PRN Reason: Pain (moderate 4-6) Last Admin: 11/03/20 21:13 Dose: 1 tab Documented by: Oxycodone/Acetaminophen (Percocet 325-5 Mg) 2 tab PO Q4H PRN PRN Reason: Pain (severe 7-10) Last Admin: 11/03/20 11:38 Dose: 2 tab Documented by: Prenat Multivit/Model [employer] Firearms/Iron/Folic Ac ( Plus Iron) 1 each PO DAILY [facility] Last Admin: 11/03/20 11:03 Dose: Not Given Documented by: Simethicone (Simethicone) 80 mg PO Q4H PRN PRN Reason: gas pains Last Admin: 11/03/20 20:30 Dose: 80 mg Documented by: Discontinued Medications Acetaminophen (Tylenol) 650 mg PO Q4H PRN PRN Reason: Pain (Mild 1-3) and fever Last Admin: 11/02/20 01:04 Dose: 650 mg Documented by: Ampicillin Sodium (Ampicillin) Confirm Administered Dose 2 gm IV .STK-MED ONE Stop: 11/02/20 02:13 Last Admin: 11/02/20 02:17 Dose: 2 gm Documented by: Bupivacaine HCl (Marcaine 0.5%) Confirm Administered Dose 30 ml .ROUTE .STK-MED ONE Stop: 11/02/20 03:06 Last Admin: 11/02/20 03:33 Dose: 20 ml Documented by: Bupivacaine HCl (Sensorcaine-Mpf 0.25%) 30 ml .ROUTE .STK-MED ONE Stop: 11/02/20 00:01 Calcium Carbonate/Glycine (Tums) 1,000 mg PO Q2H PRN PRN Reason: Indigestion Cefazolin Sodium (Ancef) Confirm Administered Dose 3 gm .ROUTE .STK-MED ONE Stop: 11/02/20 03:09 Citric Acid/Sodium Citrate (Bicitra Solution) Confirm Administered Dose 30 ml .ROUTE .STK-MED ONE Stop: 11/02/20 02:49 Citric Acid/Sodium Citrate (Bicitra Solution) 30 ml PO ONETIME ONE Stop: 11/02/20 02:54 Last Admin: 11/02/20 02:54 Dose: 30 ml Documented by: Diphenhydramine HCl (Benadryl) 25 mg IVPUSH Q6H PRN PRN Reason: pruritis Diphenhydramine HCl (Benadryl) 25 mg IVPUSH Q6H PRN PRN Reason: pruritis Ephedrine Sulfate (Ephedrine Sulfate) 5 mg IVPUSH ASDIRECTED PRN PRN Reason: Hypotension Ephedrine Sulfate (Ephedrine Sulfate) 5 mg IVPUSH ASDIRECTED PRN PRN Reason: Hypotension Fentanyl (Sublimaze) 100 mcg EPIDUR Q3H PRN PRN Reason: Pain Last Admin: 11/01/20 20:58 Dose: 100 mcg Documented by: Fentanyl (Sublimaze) Confirm Administered Dose 100 mcg .ROUTE .STK-MED ONE Stop: 11/02/20 03:09 Fentanyl (Sublimaze) 50 mcg IVPUSH Q5M PRN PRN Reason: Pain Fentanyl/Bupivacaine HCl (Fentanyl/Bupivacaine/Ns 2 Mcg-0.125% 100 Ml) 100 ml EPIDUR ASDIRECTED PRN PRN Reason: Pain Last Admin: 11/01/20 21:02 Dose: 100 ml Documented by: Gentamicin Sulfate (Gentamicin) 0 mg IV .Pharmacy to Dose [facility] Hydromorphone HCl (Dilaudid) 0.5 mg IVPUSH ONETIME PRN PRN Reason: Pain Oxytocin/Lactated Ringer's (Pitocin In Lr 10 Units/1,000 Ml) 10 unit in 1,000 mls @ 12 mls/hr IV TITRATE NNEKA; Protocol Last Titration: 11/02/20 02:40 Dose: 0 munits/min, 0 mls/hr Documented by: Oxytocin/Lactated Ringer's (Pitocin In Lr 10 Units/1,000 Ml) 10 unit in 1,000 mls @ 500 mls/hr IV .CONTINUOUS NNEKA Lactated Ringer's (Ringers, Lactated) 1,000 mls @ 100 mls/hr IV ASDIRECTED NNEKA Last Admin: 11/01/20 18:12 Dose: 100 mls/hr Documented by: Ampicillin Sodium 2 gm/ Sodium (Chloride) 100 mls @ 200 mls/hr IV NOW NNEKA Gentamicin Sulfate 200 mg/ (Sodium Chloride) 105 mls @ 105 mls/hr IV Q8H NNEKA Last Admin: 11/02/20 02:30 Dose: 105 mls/hr Documented by: Lactated Ringer's (Ringers, Lactated) 1,000 mls @ 125 mls/hr IV ASDIRECTED [facility] Clindamycin Phosphate 900 mg/ (Premix) 50 mls @ 100 mls/hr IV ONETIME ONE Stop: 11/02/20 03:22 Last Admin: 11/02/20 03:06 Dose: 100 mls/hr Documented by: Oxytocin/Lactated Ringer's (Pitocin In Lr 10 Units/1,000 Ml) 10 unit in 1,000 mls @ 100 mls/hr IV ASDIRECTED NNEKA; Protocol Lactated Ringer's (Ringers, Lactated) Confirm Administered Dose 2,000 mls @ as directed .ROUTE .STK-MED ONE Stop: 11/02/20 03:09 Dextrose/Lactated Ringer's (Dextrose 5%-Lactated Ringers) 1,000 mls @ 125 mls/hr IV ASDIRECTED [facility] Stop: 11/02/20 14:47 Last Admin: 11/02/20 07:04 Dose: 125 mls/hr Documented by: Ampicillin Sodium 2 gm/ Sodium (Chloride) 100 mls @ 200 mls/hr IV ONETIME ONE Stop: 11/02/20 10:29 Last Admin: 11/02/20 10:17 Dose: 200 mls/hr Documented by: Ketorolac Tromethamine (Toradol) Confirm Administered Dose 30 mg .ROUTE .STK-MED ONE Stop: 11/02/20 03:09 Ketorolac Tromethamine (Toradol) 30 mg IVPUSH Q6H [facility] Stop: 11/02/20 22:16 Last Admin: 11/02/20 23:25 Dose: 30 mg Documented by: Lidocaine/Epinephrine (Xylocaine-Mpf 2%-Epi 1:200,000) Confirm Administered Dose 20 ml .ROUTE .STK-MED ONE Stop: 11/02/20 03:09 Lidocaine/Epinephrine (Xylocaine-Mpf 1.5% W/Epinephrine 1:200,000) 10 ml .ROUTE .STK-MED ONE Stop: 11/02/20 00:01 Meperidine HCl (Meperidine) Confirm Administered Dose 50 mg .ROUTE .STK-MED ONE Stop: 11/02/20 03:57 Metoclopramide HCl (Reglan) Confirm Administered Dose 10 mg .ROUTE .STK-MED ONE Stop: 11/02/20 02:49 Metoclopramide HCl (Reglan) 10 mg IVPUSH ONETIME ONE Stop: 11/02/20 02:54 Last Admin: 11/02/20 02:52 Dose: 10 mg Documented by: Miscellaneous Medication (Phenylephrine 1 Mg/10 Ml-Ns) Confirm Administered Dose 0 mg .ROUTE .STK-MED ONE Stop: 11/02/20 03:09 Miscellaneous Medication (Phenylephrine 1 Mg/10 Ml-Ns) 0 mg IVPUSH ONETIME ONE Stop: 11/02/20 03:17 Miscellaneous Medication (Phenylephrine 1 Mg/10 Ml-Ns) Confirm Administered Dose 1 mg .ROUTE .STK-MED ONE Stop: 11/02/20 04:53 Misoprostol (Cytotec) 25 mcg VAG ONETIME ONE Stop: 10/31/20 19:28 Last Admin: 10/31/20 20:04 Dose: 25 mcg Documented by: Misoprostol (Cytotec) 25 mcg VAG Q4H NNEKA Stop: 11/01/20 04:02 Last Admin: 11/01/20 03:38 Dose: Not Given Documented by: Morphine Sulfate (Duramorph Pf) Confirm Administered Dose 10 mg .ROUTE .STK-MED ONE Stop: 11/02/20 03:09 Nalbuphine HCl (Nubain) 10 mg IVPUSH Q2H PRN PRN Reason: Pain Ondansetron HCl (Zofran) 4 mg IVPUSH Q4H PRN PRN Reason: Nausea/Vomiting Last Admin: 11/01/20 19:31 Dose: 4 mg Documented by: Ondansetron HCl (Zofran) Confirm Administered Dose 4 mg .ROUTE .STK-MED ONE Stop: 11/02/20 03:09 Ondansetron HCl (Zofran) 4 mg IVPUSH ONETIME PRN PRN Reason: Nausea/Vomiting Ondansetron HCl (Zofran) Confirm Administered Dose 4 mg .ROUTE .STK-MED ONE Stop: 11/02/20 03:53 Oxycodone/Acetaminophen (Percocet 325-5 Mg) 1 tab PO Q6H PRN PRN Reason: Pain (moderate 4-6) Oxycodone/Acetaminophen (Percocet 325-5 Mg) 2 tab PO Q6H PRN PRN Reason: Pain (severe 7-10) Last Admin: 11/02/20 09:14 Dose: 2 tab Documented by: Oxytocin (Pitocin) Confirm Administered Dose 20 unit .ROUTE .STK-MED ONE Stop: 11/02/20 03:09 Sodium Chloride (Saline Flush) 10 ml FLUSH ASDIRECTED PRN PRN Reason: Keep Vein Open Sodium Chloride (Saline Flush) 10 ml FLUSH ASDIRECTED PRN PRN Reason: Keep Vein Open - Exam General: Reports: Alert, Oriented HEENT: Reports: Pupils Equal, Pupils Reactive, EOMI, Mucous Membr. Moist/[place] Neck: Reports: Supple Lungs: Reports: Clear to Auscultation, Normal Respiratory Effort Cardiovascular: Reports: Regular Rate, Regular Rhythm GI/Abdominal Exam: Normal Bowel Sounds, Soft, Non-Tender, No Organomegaly, No Distention, No Abnormal Bruit, No Mass, Pelvis Stable Rectal (Female) Exam: Normal Exam Back Exam: Reports: Normal Inspection, Full Range of Motion Extremities: Normal Inspection, Normal Range of Motion, Non-Tender, No Pedal Edema, Normal Capillary Refill Skin: Reports: Warm, Dry, Intact Wound/Incisions: Reports: Healing Well Neurological: Reports: No New Focal Deficit Psy/Mental Status: Reports: Alert, Normal Affect, Normal Mood
[2020-11-04] MEDS: Prenatal Multivitamin with Calcium/Folic Acid/Iron Tab PO SCH (08:53)
[2020-11-04] MEDS: Docusate Sodium 100 MG Cap PO SCH (08:53)
[2020-11-04] MEDS: Ferrous Sulfate 324 MG Tab.EC PO SCH (08:53)
== END 2020-11-04 09:20 | disposition home or self-care (01) | DRG 786 ==
LOC: JD.OB 03:44 → OBSVTOIN 11-02 03:44 → JD.OB 11-02 13:31
PROVIDERS: ADMIT Obstetrics & Gynecology; ATTEND Obstetrics & Gynecology
PROC: 10D00Z1 Extraction of Products of Conception, Low, Open Approach (ICD-10-PCS; principal; 2020-11-02)
DX: O62.0 Primary inadequate contractions (principal); O41.1230 Chorioamnionitis, third trimester, not applicable or unspecified; O13.4 Gestational [pregnancy-induced] hypertension without significant proteinuria, complicating childbirth; O99.214 Obesity complicating childbirth; E66.9 Obesity, unspecified; Z3A.39 39 weeks gestation of pregnancy; Z37.0 Single live birth; O75.81 Maternal exhaustion complicating labor and delivery; O77.0 Labor and delivery complicated by meconium in amniotic fluid; Z20.822 Contact with and (suspected) exposure to COVID-19
CPT/HCPCS: 36415; 51701; 51702; 59025; 80053; 82570; 84156; 85025; 86592; 86850; 86900; 86901; A9270-GY; J0290; J0690; J1200; J1580; J1885; J2175; J2270; J2370; J2405; J2590; J2765; J3010; J3490; J7050; J7120; J7121; U0002